=== PATIENT | male | born 1975 | race African-American/Black ===

== ENCOUNTER 2017-05-17 00:58 | Emergency (ER) | payer BC ==
--- NOTE | 2017-05-17 01:53 | ER Document Report ---
ED General - General Stated Complaint: SUICIDIAL IDEATION Time Seen by Provider: 05/17/17 01:00 Notes: Patient is a 41-year-old male who presents with concerns of suicidal ideation without a specific plan. Patient is a difficult historian initially but does express that his primary concern is that his has left him due to him being unfaithful. Patient states that since this occurred several months ago he has lost purpose in life and feels like there is nothing to live for. States he has been drinking increasingly larger quantities of alcohol to try to improve his feelings about this topic without success. States that tonight he went out to watch Spider-Man with his entire family, and afterwards when his family left to go home and he had to go back to his old apartment he began to question why he continues to do this and became increasingly suicidal. Patient denies any acute medical concerns today. Denies immediate access to a firearm. No specific plans as to how he would kill himself. He has been hospitalized on one prior occasion in 2010 for similar presentation. TRAVEL OUTSIDE OF THE [place] IN LAST 30 DAYS: No - Related Data Allergies/Adverse Reactions: No Known Allergies Allergy (Unverified 03/25/15 08:46) Past Medical History - General Information source: Patient - Social History Smoking Status: Never Smoker Frequency of alcohol use: Occasional Drug Abuse: None Lives with: Alone Family History: Reviewed & Not Pertinent - Past Medical History Cardiac Medical History: Reports: Hx Hypercholesterolemia, Hx Hypertension Past Surgical History: Reports: Hx Orthopedic Surgery - R knee scope - Immunizations Hx Diphtheria, Pertussis, Tetanus Vaccination: - unk Review of Systems - Review of Systems Notes: Constitutional: Negative for fever. HENT: Negative for sore throat. Eyes: Negative for visual changes. Cardiovascular: Negative for chest pain. Respiratory: Negative for shortness of breath. Gastrointestinal: Negative for abdominal pain, vomiting or diarrhea. Genitourinary: Negative for dysuria. Musculoskeletal: Negative for back pain. Skin: Negative for rash. Neurological: Negative for headaches, weakness or numbness. 10 point ROS negative except as marked above and in HPI. Physical Exam - Vital signs Interpretation: Normal Notes: PHYSICAL EXAMINATION: GENERAL: Well-appearing, well-nourished and in no acute distress. HEAD: Atraumatic, normocephalic. EYES: Pupils equal round and reactive to light, extraocular movements intact, sclera anicteric, conjunctiva are normal. ENT: nares patent, oropharynx clear without exudates. Moist mucous membranes. NECK: Normal range of motion, supple without lymphadenopathy LUNGS: Breath sounds clear to auscultation bilaterally and equal. No wheezes rales or rhonchi. HEART: Regular rate and rhythm without murmurs ABDOMEN: Soft, nontender, normoactive bowel sounds. No guarding, no rebound. No masses appreciated. EXTREMITIES: Normal range of motion, no pitting or edema. No cyanosis. NEUROLOGICAL: No focal neurological deficits. Moves all extremities spontaneously and on command. PSYCH: Poor eye contact, depressed mood and affect SKIN: Warm, Dry, normal turgor, no rashes or lesions noted. Course - Re-evaluation Re-evalutation: 05/17/17 01:49 Patient presents with suicidal ideation, depression, who presents with progressively worsening feelings of hopelessness and depression, culminating a feeling of suicidal ideation tonight. Patient admits to alcohol use. I spent 20 minutes in the room talking with the patient and he repeatedly comes back to stating "nothing matters anymore, it does not matter if I kill myself or not." Despite trying to advocate with the patient that he clearly has relevance of his children and family, patient circled back to ever since he has become from his there is no longer reason to live anymore and he would much rather go home, drink and kill himself. Patient does not have access to a firearm at this time as he states he pawned his pistol off. However, I remain concerned that the patient appears an elevated risk for completion of suicide at this time particularly in the influence of alcohol. He has a place under involuntary commitment at this time and will be evaluated by psychiatry in the morning. 05/17/17 03:34 Medical screening labs show elevated ETOH otherwise unremarkable. Patient remains calm and cooperative at this time. Cleared for psych eval. - Laboratory Result Diagrams: 05/17/17 02:09 05/17/17 02:09 Laboratory results interpreted by me: 05/17/17 05/17/17 02:09 02:09 RDW 14.3 H Sodium 148.0 H Potassium 3.3 L Chloride 109 H Salicylates < 1.0 L Acetaminophen < 10 L - EKG Interpretation by Me Additional EKG results interpreted by me: 05/17/17 03:[address] elevations or depressions. QTc 455. Discharge - Discharge Clinical Impression: Suicidal ideation Condition: Fair Disposition: PSYCH HOSP/UNIT
[2017-05-17 02:28] LABS: ABSOLUTE EOSINOPHILS # (AUTO) 0.2 10^3/uL (0.0-0.6); ABSOLUTE LYMPHOCYTES (AUTO) 2.5 10^3/uL (0.5-4.7); ABSOLUTE MONOCYTES (AUTO) 0.6 10^3/uL (0.1-1.4); ABSOLUTE NEUT (AUTO) 4.8 10^3/uL (1.7-8.2); BASOPHILS % (AUTO) 0.6 % (0-2); EOSINOPHILS % (AUTO) 2.5 % (0-6); HEMATOCRIT 44.6 % (37.9-51.0); HEMOGLOBIN 14.9 g/dL (13.5-17.0); HGB HCT DIFFERENCE 0.1; LYMPHOCYTES % (AUTO) 30.6 % (13-45); MEAN CORPUSCULAR HEMOGLOBIN 30.6 pg (27.0-33.4); MEAN CORPUSCULAR HGB CONC 33.5 g/dL (32.0-36.0); MEAN CORPUSCULAR VOLUME 91 fl (80-97); MONOCYTES % (AUTO) 7.1 % (3-13); RED BLOOD COUNT 4.88 10^6/uL (4.35-5.55); RED CELL DISTRIBUTION WIDTH 14.3 % (11.5-14.0); SEGMENTED NEUTROPHILS % (AUTO) 59.2 % (42-78); WHITE BLOOD COUNT 8.1 10^3/uL (4.0-10.5)
[2017-05-17 02:37] LABS: ALANINE AMINOTRANSFERASE 34 U/L (21-72); ALBUMIN 4.3 g/dL (3.5-5.0); ALCOHOL 116 mg/dL (NONE DETECTED); ALKALINE PHOSPHATASE 92 U/L (38-126); ANION GAP 13 (5-19); ASPARTATE AMINO TRANSFERASE 32 U/L (17-59); BILIRUBIN,DIRECT 0.3 mg/dL (0.0-0.4); BILIRUBIN,TOTAL 0.6 mg/dL (0.2-1.3); BLOOD UREA NITROGEN 15 mg/dL (7-20); CALCIUM 9.2 mg/dL (8.4-10.2); CARBON DIOXIDE 26 mmol/L (22-30); CHLORIDE 109 mmol/L (98-107); CREATININE RESULT 1.02 mg/dL (0.52-1.25); GLUCOSE 109 mg/dL (75-110); POTASSIUM 3.3 mmol/L (3.6-5.0); TOTAL PROTEIN 7.6 g/dL (6.3-8.2)
[2017-05-17 03:27] LABS: APPEARANCE,URINE CLEAR; BILIRUBIN,URINE NEGATIVE (NEGATIVE); GLUCOSE, URINE NEGATIVE (NEGATIVE); KETONES,URINE NEGATIVE (NEGATIVE); LEUKOCYTE ESTERASE,URINE NEGATIVE (NEGATIVE); NITRITE,URINE NEGATIVE (NEGATIVE); PROTEIN,URINE NEGATIVE (NEGATIVE); URINE SPECIFIC GRAVITY 1.018; UROBILINOGEN,URINE NEGATIVE mg/dL (<2.0)
[2017-05-17 03:34] LABS: URINE BARBITURATES SCREEN NEGATIVE; URINE METHADONE SCREEN NEGATIVE; URINE OPIATES LOW NEGATIVE; URINE PHENCYCLIDINE SCREEN NEGATIVE
--- NOTE | 2017-05-17 08:05 | EKG REPORT ---
SEVERITY:- OTHERWISE NORMAL ECG - SINUS RHYTHM BORDERLINE RIGHT AXIS DEVIATION : Confirmed by: Nito Gleason MD 17-May-2017 08:05:14
--- NOTE | 2017-05-17 09:25 | ER Document Report ---
Doctor's Note Notes: 05/17/17 10:00 As the rounding physician for our psychiatric patients, I have reviewed the chart, vitals, lab work. Patient has been examined and noted to be stable . I am awaiting mental health in put.
--- NOTE | 2017-05-17 11:56 | ER Document Report ---
ED Psych Disorder / Suicide - General Chief Complaint: Psych Problem Stated Complaint: SUICIDIAL IDEATION Time Seen by Provider: 05/17/17 09:30 Mode of Arrival: Ambulatory Information source: Patient, [facility] Records TRAVEL OUTSIDE OF THE [place] IN LAST 30 DAYS: No - HPI Patient complains to provider of: Suicidal ideation Onset: Yesterday Onset was: Gradual Quality of pain: No pain Severity: None Pain Level: Denies Suicide Risk Factors: Depressed, Lack of social support, Male, Substance abuse Situational problems related to: Spouse Normal mood: No Associated symptoms: Depressed Similar symptoms previously: Yes Recently seen / treated by doctor: No Notes: Patient reported he spent yesterday with his family and described it as a good day. However, at the end of the day he returned to his apartment, alone, and began drinking which made him more depressed than he was previously. He reported he and his in 2010 and he continues to struggle with the separation. She reported he tends to turn to alcohol every time which makes him feel suicidal even though that is not ultimately what he wishes. Patient reported he wants his family back but feels he does not know how to connect back with his so she will understand he wants to come back. Spent an hour with Patient providing counseling and strategies with regard to self and ways to change his thought processes to memorialize his time with family. Patient was receptive and stated he felt as though he had hope. [place]. Patient reported a similar episode in 2010 with subsequent inpatient psychiatric care. He reported he continues to drink despite knowing it does not help. He indicated he is interested in counseling but not medication at this time. Patient was alert and oriented to person, place, time,and circumstance. Mood was mildly depressed and affect was mood congruent. He denied suicidal / homicidal ideation ,intent or plan. He denied auditory/ visual disturbances and no delusions were noted. Thought processes were linear, logical, and rational. Conversational speech was within normal limits for rate, tone, and prosody. Intellectual abilities were estimated within the average range. Recent, remote, and immediate memory was grossly intact. Attention and concentration was within normal limits. Insight, judgment,and impulse control was fair. 1. 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 305.00 (F10.10) Alcohol Abuse,Mild Impression, Plan: Patient is recommended for rescinding of IVC. He denied suicidal / homicidal ideation, intent, or plan. He reported he made his threats and gestures while under the influence and this morning he knew he knew better. He reported having moments of insight after waking and feels regretful his actions. He was provided some coping skills and ideas of how to move past his current position and he agreed he would follow up with counseling at [facility] in [place] .He indicated he was not interested in medications at this time but was provided community resources in the event he decided he needed them. He is recommended for outpatient follow up. ED Physician in agreement with recommendations and disposition. - Related Data Allergies/Adverse Reactions: No Known Allergies Allergy (Unverified 03/25/15 08:46) Past Medical History - General Information source: Patient - Social History Smoking Status: Never Smoker Frequency of alcohol use: Occasional Drug Abuse: None Lives with: Alone Family History: Reviewed & Not Pertinent - Past Medical History Cardiac Medical History: Reports: Hx Hypercholesterolemia, Hx Hypertension Past Surgical History: Reports: Hx Orthopedic Surgery - R knee scope - Immunizations Hx Diphtheria, Pertussis, Tetanus Vaccination: - unk Physical Exam - Vital signs Vitals: Temp Pulse Resp BP Pulse Ox 98 F 76 18 140/78 H 96 05/17/17 02:11 05/17/17 02:11 05/17/17 02:11 05/17/17 02:11 05/17/17 02:11 Course - Vital Signs Vital signs: Temp Pulse Resp BP Pulse Ox 98.0 F 78 16 148/79 H 98 05/17/17 10:40 05/17/17 10:40 05/17/17 10:40 05/17/17 10:40 05/17/17 10:40 - Laboratory Result Diagrams: 05/17/17 02:09 05/17/17 02:09 Laboratory results interpreted by me: 05/17/17 05/17/17 05/17/17 01:15 02:09 02:09 RDW 14.3 H Sodium 148.0 H Potassium 3.3 L Chloride 109 H Urine Ascorbic Acid 20 H Salicylates < 1.0 L Acetaminophen < 10 L Discharge - Discharge Clinical Impression: Mild alcohol abuse Condition: Good Disposition: HOME, SELF-CARE Additional Instructions: DEPRESSION Your evaluation reveals that you have major depression. While symptoms may be vague, they often include disturbance of sleep, fatigue, loss of appetite, and general loss of interest in life. While depression may be a side effect of drugs, or a reaction to a major change in your life, many cases have no known cause. If depression is acute, and related to a major loss in your life, you can expect it to clear completely with time. If you have been depressed a long time , are prone to repeated bouts of depression or low mood, or have been thinking of suicide, get help. Depression can be treated with anti-depressant medication and counselling. Long-term depression will often take a few weeks to clear, even with appropriate medication. Follow-up care is important. Contact your physician, the hospital emergency center, crisis line, or your counsellor if you are losing control or having self-destructive thoughts. Suicidal Ideation Suicidal ideation is a common medical term for thoughts about suicide, which may be as detailed as a formulated plan, without the suicidal act itself. Although most people who undergo suicidal ideation do not commit suicide, some go on to make suicide attempts. The range of suicidal ideation varies greatly from fleeting to detailed planning, role playing, and unsuccessful attempts. While thoughts about suicide are common, most people do not carry out serious actions to commit suicide. However, based upon your evaluation and discussion with you, we believe you are currently at risk to act upon your thoughts of suicide. Therefore, you will be admitted to a facility for inpatient care. Please follow up at Counseling at [address] [place] [address] for therapy appointment.
[2017-05-17 13:01] VITALS: BP 140/78
== END 2017-05-17 12:40 | disposition home or self-care (01) ==
LOC: ER 00:58
DX: F33.0 Major depressive disorder, recurrent, mild (principal); F10.10 Alcohol abuse, uncomplicated; R45.851 Suicidal ideations; Z63.5 Disruption of family by separation and divorce; I10 Essential (primary) hypertension
CPT/HCPCS: 36415; 80053; 80307; 81001; 85025; 93005; 93010; 99284

== ENCOUNTER 2017-05-29 23:26 | Emergency (ER) | payer BC ==
[2017-05-30 00:22] LABS: ABSOLUTE BASOPHILS # (AUTO) 0.1 10^3/uL (0.0-0.2); ABSOLUTE EOSINOPHILS # (AUTO) 0.1 10^3/uL (0.0-0.6); ABSOLUTE LYMPHOCYTES (AUTO) 2.1 10^3/uL (0.5-4.7); ABSOLUTE MONOCYTES (AUTO) 0.5 10^3/uL (0.1-1.4); ABSOLUTE NEUT (AUTO) 8.7 10^3/uL (1.7-8.2); BASOPHILS % (AUTO) 0.5 % (0-2); EOSINOPHILS % (AUTO) 1.3 % (0-6); HEMATOCRIT 47.5 % (37.9-51.0); HEMOGLOBIN 16.1 g/dL (13.5-17.0); HGB HCT DIFFERENCE 0.8; LYMPHOCYTES % (AUTO) 18.6 % (13-45); MEAN CORPUSCULAR HEMOGLOBIN 31.2 pg (27.0-33.4); MEAN CORPUSCULAR HGB CONC 33.8 g/dL (32.0-36.0); MEAN CORPUSCULAR VOLUME 92 fl (80-97); MONOCYTES % (AUTO) 4.5 % (3-13); RED BLOOD COUNT 5.15 10^6/uL (4.35-5.55); RED CELL DISTRIBUTION WIDTH 14.2 % (11.5-14.0); SEGMENTED NEUTROPHILS % (AUTO) 75.1 % (42-78); WHITE BLOOD COUNT 11.5 10^3/uL (4.0-10.5)
[2017-05-30 00:36] LABS: ALANINE AMINOTRANSFERASE 41 U/L (21-72); ALBUMIN 4.8 g/dL (3.5-5.0); ALCOHOL 126 mg/dL (NONE DETECTED); ALKALINE PHOSPHATASE 111 U/L (38-126); ANION GAP 16 (5-19); ASPARTATE AMINO TRANSFERASE 25 U/L (17-59); BILIRUBIN,DIRECT 0.3 mg/dL (0.0-0.4); BILIRUBIN,TOTAL 0.8 mg/dL (0.2-1.3); BLOOD UREA NITROGEN 14 mg/dL (7-20); CALCIUM 9.5 mg/dL (8.4-10.2); CARBON DIOXIDE 25 mmol/L (22-30); CHLORIDE 104 mmol/L (98-107); CREATININE RESULT 1.16 mg/dL (0.52-1.25); GLUCOSE 97 mg/dL (75-110); POTASSIUM 3.7 mmol/L (3.6-5.0); SODIUM 144.7 mmol/L (137-145); TOTAL PROTEIN 8.3 g/dL (6.3-8.2)
--- NOTE | 2017-05-30 00:55 | ER Document Report ---
ED Psych Disorder / Suicide - General Mode of Arrival: Ambulatory Information source: Law Enforcement TRAVEL OUTSIDE OF THE [place] IN LAST 30 DAYS: No <SILVIA KAMARA Yaya - Last Filed: 05/30/17 01:10> - General Information source: Patient - HPI Associated symptoms: Depressed, Tearful <JOHN CONN - Last Filed: 05/31/17 07:03> <VANCE MARINA - Last Filed: 06/01/17 10:50> - General Chief Complaint: Psych Problem Stated Complaint: IVC AWAITING PAPERS Time Seen by Provider: 05/29/17 23:33 - HPI Notes: 41-year-old male with history of hypertension and depression is brought to the emergency department tonight accompanied by police department. He got into a verbal altercation with his . He made some comments and he felt like he was going to hurt himself. He apparently made some comments regarding a gun so [place] [employer] were contacted and EMS to transport the patient here. He voluntarily apparently was going to come then started resisting this thought and refused and ended up being tased. He has not offer much more in the way of history, lying with his eyes closed he does acknowledge that he was here a few weeks ago for depression, prescribed medication but decided not to get it filled. Mobile crisis had been contacted prior to EMS and apparently IVC papers have been filed. (SILVIA KAMARA) Psychological evaluation conducted 05/30/2017 patient disclosed he does not know why he is at [facility] ED but "I have no idea." Patient was able to further explain stating that he has been depressed and needs help and thinks his called. Patient states "I am not suicidal, I'm fine." Patient again stated that he has been sad for a long time and has a lot of stressors such as "bills, kids" and current relationship discord between him and his spouse. Patient confirms he did go for mental health follow-up after his 05/17/2017, ED visit. [facility] but cannot remember what it was for an admit he does not feel it because "I lost the scrip." Patient admits that he drank too much last night because of the stress. When questioned why he attempted to clam picker his gun from the [employer] yesterday (IVC paperwork states patient was unsuccessful in his attempts at retrieving his gun from a pawn shop), patient stated that his property; patient would not elaborate. When asked about the relationship discord, patient disclosed he "made a mistake and had an indiscretion." Patient further disclosed this is not the first time in his marriage, "my is a beautiful person and forgave me before, but I do not think she will this time." Patient became very tearful stating "she said she does not give a fabout my feelings , how can she say that after 16 years?" Clinician asked if patient want to hurt himself, patient engaged in a philosophical discussion of why anyone cares if someone wants to end their life. Patient refused to move discussion from philosophical discussion of cultural norms through history to his thoughts and wants for self-harm. Patient is alert and orientated to person place time and circumstance. Mood is dysphoric with tearful affect. Patient denies suicidal ideation; patient is noted to attempt at retrieving his gun from the pawn shop and engaging in discussions on why anyone would care if someone they did not know ended their life. Patient denies homicidal ideation. No delusions are noted. Patient denies auditory visual hallucinations; patient is not demonstrating any behaviors congruent with responding to internal stimuli. Thought content is organized and linear. Eye contact was fair. Intellectual abilities appear to be within average range. Attention and concentration are fair. Insight, judgment, impulse control appear to be poor. 311 (F32.9) unspecified depressive disorder Impression\\plan: Patient is recommended to continue under IVC. Patient is noted by both law enforcement and spouse to making comments of ending his life. Patient attempted to retrieve his gun from pawn shop. While patient was under the influence, patient is demonstrating a concerning decline in his mental health. Patient is having difficulty accepting the consequences to his actions in regards to his marital discord. Patient was seen on 05/17/2017 as was referred to outpatient services; while patient attended this appointment, patient never took medication prescribed to him. Patient demonstrated not only a suicidal plan, patient attempted to retrieve the means (gun). Patient will be reevaluated. Dr. Velazquez was consulted on the care and management of this patient; attending physician is in agreement with recommendations and disposition. (JOHN CONN) Conducted check in with patient who today presents anxious and irritable. Patient states he is "fine" and ready to go home. Patient listed numerous tasks and responsibilities to substantiate why he should be discharged. Patient states he is no longer suicidal, and further denies making suicidal comments and or stating he wanted to . Patient acknowledges he is depressed , but reports he had a good conversation with his , mother, and sister on the phone last night. He states he told him something he has needed to hear over the past few months. Patient refused to specify the context of the conversation. Patient continued to become frustrated and stated he cannot do the things he needs to do while in the ER, to include resume school, be a good father, take his medications, and focus on improving his mental health. , Yuki states over the past few days she has been in communication with him. She states Thursday the patient had a "total and complete melt down." She states he requires a lot of attention, and she was not giving him attention. She states he had been really sad and upset Ar about them not being together. She states he had been in communication with his sister and mother and they called her concerned. She states they had been since February and she is not sure what precipitated Thursday's events. She states as the day went on, his emotions increased along with his ETOH intake. She states the patient made statements to his sister, to include he didn't want to be here anymore, and also made that statement later in the evening. reports around 1929 she called the crisis line and they were able to send someone out, along with the police. She states she received a text from patient' s sister stating the patient was at the [employer] trying to retrieve his gun. reports she is unsure if the patient was intoxicated during this time frame, and states she is unsure of patient's intent. reports that she is unsure what occurred at the pawn shop, but states she knows the police responded and that his vehicle is still there. She states she did receive conversation later that evening and then he returned there, which is when she again called crisis line. reports the patient seemed irritable today, and states that he thinks he has come to this realization that he just needs to continue with life and take certain steps. Patient is A&O. Mood is anxious and irritable. Patient denies suicidal ideation ; patient is noted to attempt at retrieving his gun from the pawn shop and engaging in discussions on why anyone would care if someone they did not know ended their life. Patient denies homicidal ideation. No delusions are noted. Patient denies auditory visual hallucinations; patient is not demonstrating any behaviors congruent with responding to internal stimuli. Thought content is organized and linear. Eye contact was fair. Intellectual abilities appear to be within average range. Attention and concentration are fair. Insight, judgment, impulse control appear to be poor. 311 (F32.9) unspecified depressive disorder Impression\\plan: Patient is recommended to continue under IVC. Patient is noted by both law enforcement and spouse to making comments of ending his life. Patient attempted to retrieve his gun from pawn shop, possibly while under the influence with unknown intent. Patient's limited insight and impulsive acts place him at risk for further incident. I consulted with Dr. Velazquez in regards to the care and management of this patient. ED provider is in agreement with disposition and recommendations. 06/01/2017: Patient has been accepted to [facility] by Dr. Betts. Made patient aware who politely discussed his reasons for why he did not need to go. Discussed with patient that at this time, the transfer will occur due to concerns over his safety, decision making, impulsive tendencies, and reports of feeling hopeless and attempts to access a gun from the pawn shop during admission. Patient is recommended to follow through with placement. Encouraged patient to utilize this time to contact his and make necessary arrangements. Offered to contact [facility] on his behalf to inquire about access to a computer to he may engage in his class when it is scheduled to begin Thursday. Per admissions, there are no electronics on the unit. Encouraged patient to discuss this upon his arrival and review his concerns. I consulted with Dr. Velazquez in regards to the care and management of this patient. ED MD is in agreement with disposition and recommendations. (VANCE MARINA) - Related Data Allergies/Adverse Reactions: No Known Allergies Allergy (Verified 06/01/17 08:56) Home Medications: Current Home Medications Lisinopril 40 mg PO DAILY 05/30/17 [History] Past Medical History - Social History Smoking Status: Current Every Day Smoker Chew tobacco use (# tins/day): No Frequency of alcohol use: Social Drug Abuse: None Family History: Reviewed & Not Pertinent Patient has suicidal ideation: No Patient has homicidal ideation: No - Past Medical History Cardiac Medical History: Reports: Hx Hypercholesterolemia, Hx Hypertension Renal/ Medical History: Denies: Hx Peritoneal Dialysis Psychiatric Medical History: Reports: Hx Depression Past Surgical History: Reports: Hx Orthopedic Surgery - R knee scope - Immunizations Hx Diphtheria, Pertussis, Tetanus Vaccination: No - unk <SILVIA KAMARA - Last Filed: 05/30/17 01:10> Review of Systems - Review of Systems -: Yes All other systems reviewed and negative - He currently denies any physical complaints <SILVIA KAMARA - Last Filed: 05/30/17 01:10> Physical Exam - Vital signs Interpretation: Hypertensive <SILVIA KAMARA - Last Filed: 05/30/17 01:10> <JOHN CONN - Last Filed: 05/31/17 07:03> <VANCE MARINA - Last Filed: 06/01/17 10:50> - Vital signs Vitals: Temp Pulse Resp BP Pulse Ox 98.4 F 99 18 135/83 H 97 05/29/17 23:40 05/29/17 23:40 05/29/17 23:40 05/29/17 23:40 05/29/17 23:40 - Notes Notes: GENERAL: VS as per nursing doc. Well-appearing, well-nourished and in no acute distress. HEAD: Atraumatic, normocephalic EYES: Sclera anicteric, no conjunctival injection or discharge. ENT: Nares patent, oropharynx clear without exudates, moist mucous membranes. NECK: Normal range of motion, supple without lymphadenopathy. LUNGS: Breath sounds clear to auscultation bilaterally and equal. No wheezes rales or rhonchi. HEART: Regular rate and rhythm without murmurs. Peripheral pulses equal. ABDOMEN: Soft, non-tender. BACK: Normal to inspection EXTREMITIES: Normal appearance without edema. NEUROLOGICAL: Cranial nerves grossly intact. Normal speech. Normal sensory and motor exams. No gross cerebellar abnormalities. PSYCH: Oriented 3. Calm, directable. No evidence of hallucinations or delusions. No reported suicidal or homicidal ideation, currently denies saying he "messed up". Affect is flat, there is no eye contact essentially, tearful and asking for his SKIN: Warm, dry. No lacerations. (SILVIA KAMARA) Course - Laboratory Result Diagrams: 05/30/17 00:12 05/30/17 00:12 <SILVIA KAMARA - Last Filed: 05/30/17 01:10> - Laboratory Result Diagrams: 05/30/17 00:12 05/30/17 00:12 <JOHN CONN - Last Filed: 05/31/17 07:03> - Laboratory Result Diagrams: 05/30/17 00:12 05/30/17 00:12 <VANCE MARINA - Last Filed: 06/01/17 10:50> - Vital Signs Vital signs: Temp Pulse Resp BP Pulse Ox 97.8 F 94 14 118/75 97 06/01/17 07:58 06/01/17 07:58 06/01/17 07:58 06/01/17 07:58 06/01/17 07:58 - Laboratory Laboratory results interpreted by me: 05/30/17 05/30/17 00:12 00:12 WBC 11.5 H RDW 14.2 H Absolute Neutrophils 8.7 H Total Protein 8.3 H Salicylates < 1.0 L Acetaminophen < 10 L Discharge <SILVIA KAMARA - Last Filed: 05/30/17 01:10> <JOHN CONN - Last Filed: 05/31/17 07:03> <VANCE MARINA - Last Filed: 06/01/17 10:50> - Discharge Clinical Impression: Depression, Suicidal ideation Condition: Stable
[2017-05-30 07:02] LABS: APPEARANCE,URINE CLEAR; BILIRUBIN,URINE NEGATIVE (NEGATIVE); GLUCOSE, URINE NEGATIVE (NEGATIVE); KETONES,URINE NEGATIVE (NEGATIVE); LEUKOCYTE ESTERASE,URINE NEGATIVE (NEGATIVE); NITRITE,URINE NEGATIVE (NEGATIVE); PROTEIN,URINE NEGATIVE (NEGATIVE); URINE SPECIFIC GRAVITY 1.021; UROBILINOGEN,URINE NEGATIVE mg/dL (<2.0)
[2017-05-30 07:13] LABS: URINE BARBITURATES SCREEN NEGATIVE; URINE METHADONE SCREEN NEGATIVE; URINE OPIATES LOW NEGATIVE; URINE PHENCYCLIDINE SCREEN NEGATIVE
--- NOTE | 2017-05-30 12:02 | ER Document Report ---
Doctor's Note Notes: 05/30/17 11:59 Medical rounds: Chart reviewed and patient interviewed briefly. Patient does have mild persistent hypertension, otherwise vital signs are normal. Laboratory values are satisfactory. Patient verbalizes no somatic complaints. He is alert, coherent, and conversant. He is well oriented and verbalizes satisfactory insight and understanding as to his evaluation and treatment plan. He has been evaluated by psych and their recommendations are pending. Order has been written for lisinopril 40 mg daily for control of his hypertension. He remains medically stable.
[2017-05-30] MEDS ORDERED: VENLAFAXINE HCL 37.5 MG CAP.SR.24H PO SCH (18:15)
[2017-05-30] MEDS ORDERED: VENLAFAXINE HCL 37.5 MG CAP.SR.24H PO ONE ×2 (18:30→19:05)
[2017-05-30] MEDS ORDERED: TRAZODONE HCL 50 MG TABLET PO ONE (20:41)
[2017-05-31] MEDS: LISINOPRIL 10 MG TABLET PO SCH (09:28)
[2017-05-31] MEDS: VENLAFAXINE HCL 37.5 MG CAP.SR.24H PO SCH (09:28)
--- NOTE | 2017-05-31 09:33 | ER Document Report ---
Doctor's Note Notes: 05/31/17 09:32 This is a 41-year-old man who was forcefully brought in to the emergency room by SILVA for depression and suicidal ideations. His vital signs and labs have been stable. On physical exam this morning, the patient is ambulatory and just came back from the bathroom. Patient states she is "ready to go" and states he feels much better. The patient has been taking his medicines appropriately as per the nurse. We are awaiting psychiatric evaluation. 05/31/17 10:06
--- NOTE | 2017-05-31 13:51 | EKG REPORT ---
SEVERITY:- BORDERLINE ECG - SINUS RHYTHM PROBABLE LEFT ATRIAL ABNORMALITY : Confirmed by: Stacia Devlin MD 31-May-2017 13:51:17
[2017-05-31] MEDS ORDERED: TRAZODONE HCL 50 MG TABLET PO ONE (19:47)
[2017-06-01] MEDS ORDERED: LORAZEPAM 1 MG TABLET PO ONE (02:23)
--- NOTE | 2017-06-01 09:34 | ER Document Report ---
Doctor's Note Notes: 06/01/17 09:33 I have evaluated this pt. this am and he has no c/o at this time. He feels all of his needs are being met and his physical exam is normal. He is aawaiitng disposition per mental health.
[2017-06-01] MEDS: LISINOPRIL 10 MG TABLET PO SCH (12:07)
[2017-06-01] MEDS: VENLAFAXINE HCL 37.5 MG CAP.SR.24H PO SCH (12:08)
[2017-06-01 14:01] VITALS: BP 131/61
--- NOTE | 2017-06-01 14:11 | ER Document Report ---
Doctor's Note Notes: 06/01/17 14:11 I have re-assessed this pt. and he is stable for transfer
== END 2017-06-01 13:55 ==
LOC: ER 23:26
DX: F32.9 Major depressive disorder, single episode, unspecified (principal); I10 Essential (primary) hypertension; E78.00 Pure hypercholesterolemia, unspecified; F17.200 Nicotine dependence, unspecified, uncomplicated
CPT/HCPCS: 93005; 99285; 36415; 80307 ×4; 85025; 80053; 81001; 93010; J3490

== ENCOUNTER 2018-07-14 18:04 | Emergency (ER) | payer BC ==
--- NOTE | 2018-07-14 18:33 | ER Document Report ---
ED General - General Chief Complaint: Psych Problem Stated Complaint: PSYCH PROBLEM Time Seen by Provider: 07/14/18 18:16 TRAVEL OUTSIDE OF THE [place] IN LAST 30 DAYS: No - HPI Notes: 42-year-old male presents with significant depression and hopelessness. He has been from his for the past year and 3 months. He states "things have gotten bad" over the past 2 months. He recently found out that she was entertaining the idea of sleeping with one of his friends. He has a mother and 3 sisters, but none of them live in this state. He has 2 boys that live with his , but he does assist in their care. He has a job. He admits to drinking daily for the past year since separation. He drinks malt liquor and one bottle of liquor a day. He has increased his alcohol intake over the past few days. He is extremely tearful. He denies any suicidal thoughts or plan. No homicidal thoughts. No prior suicide attempts. - Related Data Allergies/Adverse Reactions: No Known Allergies Allergy (Verified 06/01/17 08:56) Past Medical History - Social History Smoking Status: Unknown if Ever Smoked Family History: Reviewed & Not Pertinent Patient has suicidal ideation: No Patient has homicidal ideation: No - Past Medical History Cardiac Medical History: Reports: Hx Hypercholesterolemia, Hx Hypertension Renal/ Medical History: Denies: Hx Peritoneal Dialysis Psychiatric Medical History: Reports: Hx Depression Past Surgical History: Reports: Hx Orthopedic Surgery - R knee scope - Immunizations Hx Diphtheria, Pertussis, Tetanus Vaccination: No - unk Review of Systems - Review of Systems Notes: Constitutional: Negative for fever. HENT: Negative for sore throat. Eyes: Negative for visual changes. Cardiovascular: Negative for chest pain. Respiratory: Negative for shortness of breath. Gastrointestinal: Negative for abdominal pain, vomiting or diarrhea. Genitourinary: Negative for dysuria. Musculoskeletal: Negative for back pain. Skin: Negative for rash. Neurological: Negative for headaches, weakness or numbness. Psychiatric:, Tearful, depressed, no suicidal thoughts 10 point ROS negative except as marked above and in HPI. Physical Exam - Vital signs Vitals: Temp Pulse BP Pulse Ox 98.4 F 100 129/80 H 97 07/14/18 19:14 07/14/18 19:14 07/14/18 19:14 07/14/18 19:14 - Notes Notes: PHYSICAL EXAMINATION: GENERAL: Well-appearing, well-nourished and in no acute distress. HEAD: Atraumatic, normocephalic. EYES: Pupils equal round and reactive to light, extraocular movements intact, conjunctiva are normal. ENT: nares patent, oropharynx clear without exudates. Moist mucous membranes. NECK: Normal range of motion, supple without lymphadenopathy LUNGS: Breath sounds clear to auscultation bilaterally and equal. No wheezes rales or rhonchi. HEART: Regular rate and rhythm, no chest wall tenderness ABDOMEN: Soft, nontender, normoactive bowel sounds. No guarding, no rebound. No masses appreciated. EXTREMITIES: Normal range of motion, no pitting or edema. No cyanosis. NEUROLOGICAL: Cranial nerves grossly intact. Normal speech, normal gait. Normal sensory and motor exams. PSYCH: Depressed, tearful. No suicidal or homicidal thoughts SKIN: Warm, Dry, normal turgor, no rashes or lesions noted. Course - Re-evaluation Re-evalutation: 07/14/18 19:20 Patient medically cleared for psychiatric evaluation. He is voluntary does not require involuntary commitment as he has no suicide or homicidal thoughts. - Vital Signs Vital signs: Temp Pulse Resp BP Pulse Ox 98.4 F 100 129/80 H 97 07/14/18 19:14 07/14/18 19:14 07/14/18 19:14 07/14/18 19:14 - Laboratory Result Diagrams: 07/14/18 18:40 07/14/18 18:40 Laboratory results interpreted by me: 07/14/18 07/14/18 07/14/18 18:40 18:40 18:40 Hgb 17.2 H RDW 14.1 H Sodium 145.4 H Creatinine 1.27 H Total Protein 8.6 H Urine Protein 30 H Urine Urobilinogen 2.0 H Ur Leukocyte Esterase TRACE H Salicylates < 1.0 L Acetaminophen < 10 L Discharge - Discharge Clinical Impression: Depression Qualifiers: Depression Type: unspecified Qualified Code(s): F32.9 - Major depressive disorder, single episode, unspecified Condition: Fair
[2018-07-14 18:56] LABS: ABSOLUTE BASOPHILS # (AUTO) 0.1 10^3/uL (0.0-0.2); ABSOLUTE EOSINOPHILS # (AUTO) 0.1 10^3/uL (0.0-0.6); ABSOLUTE LYMPHOCYTES (AUTO) 3.3 10^3/uL (0.5-4.7); ABSOLUTE MONOCYTES (AUTO) 0.5 10^3/uL (0.1-1.4); BASOPHILS % (AUTO) 0.8 % (0-2); EOSINOPHILS % (AUTO) 1.2 % (0-6); HEMATOCRIT 48.7 % (37.9-51.0); HEMOGLOBIN 17.2 g/dL (13.5-17.0); LYMPHOCYTES % (AUTO) 33.4 % (13-45); MEAN CORPUSCULAR HEMOGLOBIN 32.7 pg (27.0-33.4); MEAN CORPUSCULAR HGB CONC 35.3 g/dL (32.0-36.0); MEAN CORPUSCULAR VOLUME 93 fl (80-97); MONOCYTES % (AUTO) 4.7 % (3-13); PLATELET COUNT 328 10^3/uL (150-450); RED BLOOD COUNT 5.26 10^6/uL (4.35-5.55); RED CELL DISTRIBUTION WIDTH 14.1 % (11.5-14.0); SEGMENTED NEUTROPHILS % (AUTO) 59.9 % (42-78); TOTAL CELLS COUNTED % (AUTO) 100 %
[2018-07-14 19:08] LABS: APPEARANCE,URINE SLIGHTLY-CLOUDY; BILIRUBIN,URINE NEGATIVE (NEGATIVE); COLOR,URINE YELLOW; GLUCOSE, URINE NEGATIVE (NEGATIVE); KETONES,URINE NEGATIVE (NEGATIVE); LEUKOCYTE ESTERASE,URINE TRACE (NEGATIVE); NITRITE,URINE NEGATIVE (NEGATIVE); PROTEIN,URINE 30 mg/dL (NEGATIVE); URINE SPECIFIC GRAVITY 1.014
[2018-07-14 19:15] LABS: ACETAMINOPHEN < 10 ug/mL (10-30); ALANINE AMINOTRANSFERASE 43 U/L (21-72); ALCOHOL 189 mg/dL (NONE DETECTED); ALKALINE PHOSPHATASE 99 U/L (38-126); ANION GAP 18 (5-19); ASPARTATE AMINO TRANSFERASE 34 U/L (17-59); BILIRUBIN,DIRECT 0.3 mg/dL (0.0-0.4); BLOOD UREA NITROGEN 12 mg/dL (7-20); CALCIUM 9.6 mg/dL (8.4-10.2); CARBON DIOXIDE 23 mmol/L (22-30); CHLORIDE 104 mmol/L (98-107); GLUCOSE 89 mg/dL (75-110); POTASSIUM 3.8 mmol/L (3.6-5.0); SALICYLATE < 1.0 mg/dL (2.0-20.0); SODIUM 145.4 mmol/L (137-145); TOTAL PROTEIN 8.6 g/dL (6.3-8.2)
[2018-07-14 19:23] LABS: URINE AMPHETAMINES SCREEN NEGATIVE; URINE BARBITURATES SCREEN NEGATIVE; URINE BENZODIAZEPINES SCREEN NEGATIVE; URINE COCAINE SCREEN NEGATIVE; URINE MARIJUANA (THC) SCREEN NEGATIVE; URINE METHADONE SCREEN NEGATIVE; URINE PHENCYCLIDINE SCREEN NEGATIVE
--- NOTE | 2018-07-14 19:51 | EKG REPORT ---
SEVERITY:- NORMAL ECG - SINUS RHYTHM : Confirmed by: Nito Gleason MD 14-Jul-2018 19:50:36
[2018-07-15] MEDS ORDERED: DIPHENHYDRAMINE HCL 50 MG CAPSULE PO ONE (03:11)
[2018-07-15 09:27] VITALS: BP 133/76
--- NOTE | 2018-07-15 09:42 | ER Document Report ---
Doctor's Note Notes: 07/15/18 09:41 42-year-old male who was deemed voluntary by the off going physician who presents secondary to some increased depression and drinking secondary to a separation with his around 15 months ago. Patient supposedly denies any auditory or visual hallucinations. He denies any suicidal homicidal ideations. Labs as recorded. Urine analysis as recorded. Patient denies any abdominal pain, flank pain, dysuria, or fevers. A urine culture has been added. We are waiting for psychiatry's evaluation. 07/15/18 10:24 Patient is currently calm in no acute distress. Patient states that he has been "handling stress poorly". Patient states he has an upcoming psychology appointment with the [facility] this week. Patient states he has his child's football game today that he would like to see. Patient currently denies any suicidal ideations. He understands the importance of with abstaining from alcohol. Patient has no history of suicidal ideations or attempts in the past. The psychology team is currently seeing the patient. They to believe that the patient is fit to be discharged home with strict return precautions, alcohol cessation, and follow-up with the outpatient therapy already scheduled. I believe that this is a reasonable option.
[2018-07-15] MEDS ORDERED: BUSPIRONE HCL 10 MG TABLET PO ONE (11:06)
== END 2018-07-15 11:36 | disposition home or self-care (01) ==
LOC: ER 18:04
DX: F10.10 Alcohol abuse, uncomplicated (principal); F32.9 Major depressive disorder, single episode, unspecified
CPT/HCPCS: 36415; 80053; 80307; 81001; 85025; 87086; 93005; 93010; 99284